=== PATIENT | male | born 1995 | race Two or more races ===

== ENCOUNTER 2020-07-10 17:46 | Emergency (ER) | payer OTHER ==
[~2020-07-10] VITALS: Ht 180.3 cm; Wt 84.2 kg
[2020-07-10 18:38] LABS: Urine Bacteria FEW /hpf (None Seen); Urine Blood TRACE /uL (Negative); Urine Hyaline Cast FEW /lpf (0 - 2); Urine Mucus FEW (None Seen); Urine Specific Gravity 1.021 (1.001-1.035); Urine WBC 6 /hpf (0 - 3)
[2020-07-10 19:24] VITALS: BP 133/86
[2020-07-10] MEDS ORDERED: AZITHROMYCIN 250 MG TAB PO ONE (19:30)
[2020-07-10] MEDS ORDERED: cefTRIAXone SOD 1,000 MG VL IM ONE (19:30)
[2020-07-10] MEDS ORDERED: LIDOCAINE 1% HCL (LOCAL ANESTH.) INJ 20ML MDV IJ ONE (19:45)
== END 2020-07-10 20:37 | disposition home or self-care (01) ==
LOC: ER 17:46
DX: R30.0 Dysuria (principal); R31.9 Hematuria, unspecified; Z20.2 Contact with and (suspected) exposure to infections with a predominantly sexual mode of transmission
CPT/HCPCS: 81001; 96372; 99283; J0696; J2001